=== PATIENT | female | born 1940 | race Caucasian/White ===

== ENCOUNTER 2023-03-09 09:19 | Day surgery (SDC) | payer MEDICARE ==
[2023-03-09] MEDS ORDERED: INFLIXIMAB ABDA IVPB SCH (10:00)
[2023-03-09] MEDS ORDERED: SODIUM CHLORIDE 0.9% IVPB SCH ×2 (10:00→12:00)
[2023-03-09] MEDS ORDERED: INFLIXIMAB IVPB SCH (12:00)
[2023-03-09 16:17] VITALS: BP 125/60; TEMP 97.8
== END 2023-03-09 13:02 | disposition home or self-care (01) ==
LOC: ONC/OP 09:19
PROVIDERS: ATTEND Internal Medicine
DX: K50.00 Crohn's disease of small intestine without complications (principal); Z88.5 Allergy status to narcotic agent
CPT/HCPCS: 96413; 96415; Q5104; J1745; J7050

== ENCOUNTER 2023-05-06 09:27 | Day surgery (SDC) | payer MEDICARE ==
[~2023-05-06 09:27] MED LIST: INFLIXIMAB ABDA IVPB SCH; SODIUM CHLORIDE 0.9% IVPB SCH
[2023-05-06 10:24] VITALS: BP 141/65; TEMP 97.7
[2023-05-06] MEDS ORDERED: FLU VACC QS2023(65UP)/MF59C/PF 60 MCG/0.5 ML SYRINGE IM ONE (11:00)
== END 2023-05-06 13:11 | disposition home or self-care (01) ==
LOC: ONC/OP 09:27
PROVIDERS: ATTEND Internal Medicine
DX: K50.00 Crohn's disease of small intestine without complications (principal); Z88.5 Allergy status to narcotic agent
CPT/HCPCS: 96413; 96415; J7050; Q5104

== ENCOUNTER 2023-07-01 09:17 | Day surgery (SDC) | payer MEDICARE ==
[2023-07-01] MEDS ORDERED: SODIUM CHLORIDE 0.9% IVPB SCH (09:45)
[2023-07-01] MEDS ORDERED: INFLIXIMAB ABDA IVPB SCH (09:45)
[2023-07-01 11:33] VITALS: TEMP 97.8
[2023-07-01 17:23] VITALS: BP 109/55
== END 2023-07-01 12:53 | disposition home or self-care (01) ==
LOC: ONC/OP 09:17
PROVIDERS: ATTEND Internal Medicine
DX: K50.00 Crohn's disease of small intestine without complications (principal); Z88.5 Allergy status to narcotic agent
CPT/HCPCS: 96413; 96415; J7050; Q5104

== ENCOUNTER 2023-08-26 09:18 | Day surgery (SDC) | payer MEDICARE ==
[2023-08-26] MEDS: SODIUM CHLORIDE 0.9% IVPB SCH (10:52)
[2023-08-26] MEDS: INFLIXIMAB ABDA IVPB SCH (10:52)
[2023-08-26 11:27] VITALS: BP 118/53; TEMP 97.9
== END 2023-08-26 13:37 | disposition home or self-care (01) ==
LOC: ONC/OP 09:18
PROVIDERS: ATTEND Psychiatry & Neurology Psychiatry
DX: K50.00 Crohn's disease of small intestine without complications (principal); Z88.5 Allergy status to narcotic agent
CPT/HCPCS: 96413; 96415; J7050; Q5104

== ENCOUNTER 2023-09-22 12:38 | Outpatient (CLI) | payer OTHER | END 2023-09-22 12:39 | disposition home or self-care (01) | LOC: SCSMRI 12:38 | PROVIDERS: ATTEND Specialist | DX: H90.41 Sensorineural hearing loss, unilateral, right ear, with unrestricted hearing on the contralateral side (principal) | CPT/HCPCS: 70553 ==

== ENCOUNTER 2023-10-20 09:03 | Day surgery (SDC) | payer MEDICARE ==
[2023-10-20 09:36] VITALS: BP 103/49; TEMP 97.8
[2023-10-20] MEDS: INFLIXIMAB ABDA IVPB SCH (10:11)
[2023-10-20] MEDS: SODIUM CHLORIDE 0.9% IVPB SCH (10:11)
== END 2023-10-20 12:30 | disposition home or self-care (01) ==
LOC: ONC/OP 09:03
PROVIDERS: ATTEND Internal Medicine
DX: K50.00 Crohn's disease of small intestine without complications (principal); Z88.5 Allergy status to narcotic agent
CPT/HCPCS: 96413; 96415; J7050; Q5104

== ENCOUNTER 2023-11-28 01:03 | Inpatient (IN) | payer MEDICARE, OTHER ==
[2023-11-28] MEDS ORDERED: Ondansetron ODT 4 MG TAB PO PRN (01:12)
[2023-11-28] MEDS ORDERED: Ondansetron PF 4 MG/2 ML Vial IVP PRN (01:12)
[2023-11-28] MEDS ORDERED: traMADol HCl 50 MG TAB PO PRN (01:42)
[2023-11-28 01:49] VITALS: BMI 21.7
[2023-11-28] MEDS: Lactated Ringer's 500 ML IV SCH (02:12)
[2023-11-28 02:42] LABS: #Basophils Less than 0.03 10x3/uL (0.0-0.2); %Basophils 0.2 % (0.0-1.0); %Eosinophils 1.4 % (0.0-10.0); %Neutrophils 83.9 % (42.0-75.0); Hematocrit 32.7 % (36.0-47.0); Hemoglobin 10.8 g/dL (12.0-16.0); Mean Corpuscular Hemoglobin 28.8 pg (27.0-31.0); Mean Corpuscular Volume 87.2 fL (78.0-98.0); Mean Platelet Volume 9.2 fL (7.4-10.4); Platelet Count 445 10x3/uL (130-400); RBC Distribution Width 14.3 % (11.5-14.5); Red Blood Cell (RBC) Count 3.75 mill/uL (4.20-5.40)
[2023-11-28 03:16] LABS: ALT (SGPT) 10 U/L (8-55); AST (SGOT) 14 U/L (5-34); Albumin 2.9 g/dL (3.4-4.8); Alkaline Phosphatase 37 U/L (40-110); Anion Gap 15 mmol/L (10-20); BUN (Urea Nitrogen) 14 mg/dL (9.8-20.1); Bilirubin, Total 0.4 mg/dL (0.2-1.2); Calc. Creatinine Clearance 48 mL/min (70-130); Calcium 8.3 mg/dL (7.8-10.44); Carbon Dioxide 19 mmol/L (23-31); Chloride 99 mmol/L (98-107); Estimated GFR 83; Globulin 3.6 g/dL (2.4-3.5); Glucose 79 mg/dL (83-110); Potassium 4.2 mmol/L (3.5-5.1); Protein, Total 6.5 g/dL (5.8-8.1); Sodium 129 mmol/L (136-145)
[2023-11-28] MEDS: Levothyroxine Sodium 88 MCG TAB PO SCH (05:44)
[2023-11-28] MEDS ORDERED: Gabapentin 300 MG CAP PO PRN (08:05)
[2023-11-28] MEDS: Hydrochlorothiazide 25 MG TAB PO SCH (08:20)
[2023-11-28] MEDS: Lisinopril 10 MG TAB PO SCH (08:20)
[2023-11-28] MEDS: Famotidine/PF 20 mg/2ml Vial SLOW IVP SCH (08:25)
[2023-11-28] MEDS: Famotidine 20 MG TAB PO SCH (08:28)
[2023-11-28] MEDS: azaTHIOprine 50 MG TAB PO SCH (08:32)
[2023-11-28] MEDS: Sodium Chloride 0.9% 1,000 ML IV SCH (08:32)
[2023-11-28] MEDS: Budesonide DR 3 MG CAP PO SCH (11:19)
[2023-11-29 05:39] LABS: #Basophils Less than 0.03 10x3/uL (0.0-0.2); %Basophils 0.4 % (0.0-1.0); %Eosinophils 3.6 % (0.0-10.0); %Lymphocytes 23.3 % (21.0-51.0); %Monocytes 10.3 % (0.0-10.0); %Neutrophils 62.2 % (42.0-75.0); Hematocrit 27.8 % (36.0-47.0); Hemoglobin 8.9 g/dL (12.0-16.0); Mean Corpuscular Hemoglobin 27.8 pg (27.0-31.0); Mean Corpuscular Volume 86.9 fL (78.0-98.0); Mean Platelet Volume 9.2 fL (7.4-10.4); Platelet Count 386 10x3/uL (130-400); RBC Distribution Width 14.6 % (11.5-14.5)
[2023-11-29 05:50] LABS: Anion Gap 11 mmol/L (10-20); BUN (Urea Nitrogen) 8 mg/dL (9.8-20.1); Calc. Creatinine Clearance 52 mL/min (70-130); Calcium 8.2 mg/dL (7.8-10.44); Carbon Dioxide 19 mmol/L (23-31); Chloride 110 mmol/L (98-107); Estimated GFR 86; Glucose 93 mg/dL (83-110); Potassium 3.6 mmol/L (3.5-5.1); Sodium 136 mmol/L (136-145)
[2023-11-29] MEDS: Pantoprazole DR 40 MG TAB PO SCH (08:40)
[2023-11-29 12:22] VITALS: BP 96/58; TEMP 97.5
[2023-11-29 13:05] LABS: Campy jejuni + coli by PCR Negative (Negative); STEC Shiga Toxin 1+2 Negative (Negative); Salmonella spp. by PCR Negative (Negative); Shigella spp + EIEC by PCR Negative (Negative)
[2023-11-29 13:16] VITALS: BMI 21.7
== END 2023-11-29 15:33 | disposition home or self-care (01) | DRG 392 ==
LOC: T4-B 01:05 → OBSVTOIN 11-29 06:52
PROVIDERS: ADMIT Student in an Organized Health Care Education/Training Program; ATTEND Internal Medicine
DX: K52.9 Noninfective gastroenteritis and colitis, unspecified (principal); K50.80 Crohn's disease of both small and large intestine without complications; E87.1 Hypo-osmolality and hyponatremia; K50.00 Crohn's disease of small intestine without complications; E03.9 Hypothyroidism, unspecified; K82.8 Other specified diseases of gallbladder; I10 Essential (primary) hypertension; Z88.5 Allergy status to narcotic agent; Z88.8 Allergy status to other drugs, medicaments and biological substances; Z79.890 Hormone replacement therapy; Z98.890 Other specified postprocedural states; E87.6 Hypokalemia; Z79.899 Other long term (current) drug therapy
CPT/HCPCS: 36415; 74177; 80048; 80053; 81001; 83605; 83690; 85025; 86140; 87086; 87324; 87449; 87505; 96365; 96366; 96375; G0378; J1885; J2405; J3010; J7050; J7120; Q9967

== ENCOUNTER 2023-12-15 08:54 | Day surgery (SDC) | payer MEDICARE, SELFPAY ==
[2023-12-15 09:37] VITALS: BP 155/72; TEMP 97.8
[2023-12-15] MEDS: INFLIXIMAB ABDA IVPB SCH (10:28)
[2023-12-15] MEDS: SODIUM CHLORIDE 0.9% IVPB SCH (10:28)
== END 2023-12-15 12:54 | disposition home or self-care (01) ==
LOC: ONC/OP 08:54
PROVIDERS: ATTEND Internal Medicine
DX: K50.00 Crohn's disease of small intestine without complications (principal); Z88.5 Allergy status to narcotic agent
CPT/HCPCS: 96413; 96415; J7050; Q5104

== ENCOUNTER 2024-04-05 08:48 | Day surgery (SDC) | payer OTHER ==
[2024-04-05] MEDS ORDERED: Acetaminophen 500 MG TAB ONE (09:25)
[2024-04-05] MEDS ORDERED: diphenhydrAMINE 25 MG CAP ONE (09:25)
[2024-04-05] MEDS: Acetaminophen 500 MG TAB PO SCH (09:26)
[2024-04-05] MEDS: diphenhydrAMINE 25 MG CAP PO SCH (09:26)
[2024-04-05 09:35] VITALS: BP 129/61; TEMP 98
[2024-04-05] MEDS: SODIUM CHLORIDE 0.9% IVPB SCH (10:07)
[2024-04-05] MEDS: INFLIXIMAB ABDA IVPB SCH (10:07)
== END 2024-04-05 12:29 | disposition home or self-care (01) ==
LOC: ONC/OP 08:48
PROVIDERS: ATTEND Internal Medicine
DX: K50.00 Crohn's disease of small intestine without complications (principal); Z88.5 Allergy status to narcotic agent; Z88.6 Allergy status to analgesic agent; Z91.011 Allergy to milk products
CPT/HCPCS: 96413; 96415; J7050; Q5104

== ENCOUNTER 2024-05-28 08:51 | Day surgery (SDC) | payer OTHER ==
[2024-05-28 09:33] VITALS: BP 131/60; TEMP 97.8
[2024-05-28] MEDS: INFLIXIMAB ABDA IVPB SCH (10:11)
[2024-05-28] MEDS: SODIUM CHLORIDE 0.9% IVPB SCH (10:11)
== END 2024-05-28 12:42 | disposition home or self-care (01) ==
LOC: ONC/OP 08:51
PROVIDERS: ATTEND Internal Medicine
DX: K50.00 Crohn's disease of small intestine without complications (principal); Z88.8 Allergy status to other drugs, medicaments and biological substances; Z91.011 Allergy to milk products; Z88.6 Allergy status to analgesic agent; Z88.5 Allergy status to narcotic agent
CPT/HCPCS: 96413; 96415; J7050; Q5104

== ENCOUNTER 2025-01-08 08:49 | Day surgery (SDC) | payer OTHER ==
[~2025-01-08 08:49] MED LIST changes: +INFLIXIMAB ABDA IV SCH; -INFLIXIMAB ABDA IVPB SCH; -SODIUM CHLORIDE 0.9% IVPB SCH; +SODIUM CHLORIDE IV SCH; +STERILE WATER IV SCH
[2025-01-08 10:03] VITALS: BP 138/64; TEMP 97.6
[2025-01-08] MEDS: STERILE WATER IV SCH (10:38)
[2025-01-08] MEDS: INFLIXIMAB ABDA IV SCH (10:38)
[2025-01-08] MEDS: SODIUM CHLORIDE IV SCH (10:38)
== END 2025-01-08 13:56 | disposition home or self-care (01) ==
LOC: ONC/OP 08:49
PROVIDERS: ATTEND Internal Medicine
DX: K50.90 Crohn's disease, unspecified, without complications (principal); Z88.5 Allergy status to narcotic agent; Z88.8 Allergy status to other drugs, medicaments and biological substances; Z91.011 Allergy to milk products
CPT/HCPCS: 96413; 96415; J7050; Q5104

== ENCOUNTER 2025-03-05 08:45 | Day surgery (SDC) | payer OTHER ==
[2025-03-05] MEDS: INFLIXIMAB ABDA IV SCH (10:09)
[2025-03-05] MEDS: STERILE WATER IV SCH (10:09)
[2025-03-05] MEDS: SODIUM CHLORIDE IV SCH (10:09)
[2025-03-05 16:24] VITALS: BP 130/58; TEMP 98
== END 2025-03-05 13:08 | disposition home or self-care (01) ==
LOC: ONC/OP 08:45
PROVIDERS: ATTEND Internal Medicine
DX: K50.90 Crohn's disease, unspecified, without complications (principal); Z88.5 Allergy status to narcotic agent; Z88.8 Allergy status to other drugs, medicaments and biological substances
CPT/HCPCS: 96413; 96415; J7050; Q5104

== ENCOUNTER 2025-04-30 08:53 | Day surgery (SDC) | payer OTHER ==
[2025-04-30 09:40] VITALS: BP 140/65; TEMP 97.6
[2025-04-30] MEDS: INFLIXIMAB ABDA IVPB SCH (10:23)
[2025-04-30] MEDS: SODIUM CHLORIDE IVPB SCH (10:23)
[2025-04-30] MEDS: STERILE WATER IVPB SCH (10:23)
== END 2025-04-30 13:00 | disposition home or self-care (01) ==
LOC: ONC/OP 08:53
PROVIDERS: ATTEND Internal Medicine
DX: K50.90 Crohn's disease, unspecified, without complications (principal); Z88.5 Allergy status to narcotic agent; Z88.8 Allergy status to other drugs, medicaments and biological substances
CPT/HCPCS: 96413; 96415; J7050; Q5104